=== PATIENT | female | born 1940 | race Hispanic/Latino ===

== ENCOUNTER 2017-02-11 12:04 | Emergency (ER) | payer MEDICARE ==
[2017-02-11 12:25] VITALS: O2SAT 96
[2017-02-11] MEDS ORDERED: Sodium Chloride 0.9% 1,000 ML IV ONE ×2 (12:42→12:50)
[2017-02-11] MEDS ORDERED: Albuterol 0.083% Inhal Sol (2.5 mg/3 mL) UD INH STA (12:51)
[2017-02-11] MEDS ORDERED: Albuterol 0.083% Inhal Sol (2.5 mg/3 mL) UD IH STA (12:52)
--- NOTE | 2017-02-11 12:54 | C.PDOC ---
History Of Present Illness 76 yr old female presents to the ER for evaluation of nasal congestion, runny nose and productive cough gradually developing for the past 3 weeks. Patient reports the symptoms started "after I returned from a cruise". Patient states the cough has been worsening over past few days, (+) yellow sputum. Patient admits, was seen by PMD 1 week ago " was told its viral infection and dont need anything". Otherwise, patient denies high fever, chills, headache, dizziness, vertigo, neck pain, drooling, dysphagia, dyspnea, CP, palpitations, SOB, diaphoresis, nausea, vomiting, abdominal pain, diarrhea, denies any other active complaints. Ambulate to ED for evaluation, not in any apparent distress. Time Seen by Provider: 02/11/17 12:38 Chief Complaint (Nursing): Cough, Cold, Congestion History Per: Patient History/Exam Limitations: no limitations Onset/Duration Of Symptoms: Gradual (Past 3 weeks) Past Medical History Reviewed: Historical Data, Nursing Documentation, Vital Signs Vital Signs: Last Vital Signs Temp 98 F 02/11/17 12:20 Pulse 101 H 02/11/17 12:20 Resp 18 02/11/17 12:20 BP 139/71 02/11/17 12:20 Pulse Ox 96 02/11/17 14:37 - Medical History PMH: Hyperlipidemia Surgical History: Cholecystectomy, Tonsillectomy Family History: States: No Known Family Hx - Social History Hx Alcohol Use: No Hx Substance Use: No - Immunization History Hx Tetanus Toxoid Vaccination: No Hx Influenza Vaccination: No Hx Pneumococcal Vaccination: No Review Of Systems Except As Marked, All Systems Reviewed And Found Negative. Constitutional: Negative for: Fever, Chills ENT: Positive for: Nose Discharge (Runny nose), Nose Congestion Cardiovascular: Positive for: Other ((+) Chest tightness). Negative for: Palpitations Respiratory: Positive for: Cough (Productive). Negative for: Shortness of Breath Gastrointestinal: Negative for: Nausea, Vomiting, Abdominal Pain, Diarrhea, Constipation Neurological: Negative for: Weakness, Numbness, Headache Physical Exam - Physical Exam Appears: Well, Non-toxic, No Acute Distress Skin: Warm, Dry, No Rash Eye(s): bilateral: PERRL Nose: Discharge (B/L nasal congestion with clear rhinorhea), Other (mild tenderness B?L maxillary sinus. No edema, no erythema B/L.) Oral Mucosa: Moist, No Drooling Tongue: Normal Appearing Lips: Normal Appearing Throat: No Erythema, No Exudate, No Drooling Neck: Trachea Midline, Supple Cardiovascular: Rhythm Regular, No Murmur, No JVD Respiratory: No Decreased Breath Sounds, No Accessory Muscle Use, No Rhonchi, Wheezing (Bibasilar wheezing) Gastrointestinal/Abdominal: Soft, No Tenderness, No Distention, No Guarding, No Rebound Back: No CVA Tenderness Extremity: Normal ROM, No Pedal Edema, No Swelling Neurological/Psych: Oriented x3, Normal Speech ED Course And Treatment - Laboratory Results Result Diagrams: 02/11/17 13:16 02/11/17 13:16 ECG: Interpreted By Me, Viewed By Me (and ED attending) Interpretation Of ECG: Sinus rhythm@91/min, PAC, LAD, no acute T wave or ST-T changes. NO prior study noted. O2 Sat by Pulse Oximetry: 96 (RA) Pulse Ox Interpretation: Normal - Radiology CXR: Interpreted by Me, Viewed By Me CXR Interpretation: Yes: No Acute Disease - Other Rad CXR X-Ray: Read By Radiologist Interpretation: Creator : Kelli Flores MD. Dictator : Kelli Flores MD. Sloop Captain : Civil Service Worker : Kelli Flores MD. Approver2 : Report Date : 02/11/2017 13:57:36. My Comment : . HISTORY: SOB. COMPARISON: None available. TECHNIQUE: Chest PA and lateral. FINDINGS: LUNGS: Biapical pleural thickening. No focal consolidation. Please note that chest x-ray has limited sensitivity for the detection of pulmonary masses. PLEURA: No significant pleural effusion identified. No definite pneumothorax . CARDIOVASCULAR: Heart size appears within normal limits. Atherosclerotic calcifications of the aorta. OSSEOUS STRUCTURES: Osseous demineralization. Degenerative changes. VISUALIZED UPPER ABDOMEN: Unremarkable. OTHER FINDINGS : None. IMPRESSION: No acute findings identified. See above. Progress Note: Pt was OBS In ED for 2 hours and repots moderate improvement in sx. Afebrile, hemodynamicaly stable. non-toxic. AMbulatoyr in ED with stable gait. PulsEOx 96% RA. ENT: exam c/w mild frontal sinusitis. Uvula midline, no edmea. Neck: Supple, (-) JVD, (-) carotid bruits B/L. Lungs: CTA B/L, BS equal B/L. CVS: (+)S1S2, reg. ABd: Benign, (-) guarding, (-) rebound. Back: ( -) CVA tenderness. Blodo work review- mild leukocytosis w/left shift. CMP- normal study. UA (+) WBC, RBC. cXR- no acute findings. Pt has clinical findings c/w bronchitis/sinusitis, UTI. Cse dsicussed with ED attending and discharge with outpt f/u recommend. Results review and discussed with pt. Pt feels comfortable for discharges, agrees with plan to F/U with PMD in 1-2 days. Pt advised, return to ED at any time if any worsening or new changes. Pt understand, stable for discharge now. Medical Decision Making Medical Decision Making: PLAN: * CXR * EKG * CBC * CMP * Albuterol INH * Solumedrol IVP * Sodium Chloride IV Disposition Counseled Patient/Family Regarding: Studies Performed, Diagnosis, Need For Followup, Rx Given - Disposition Referrals: Fred Polk MD [Staff Provider] - Disposition: HOME/ ROUTINE Disposition Time: 14:37 Condition: STABLE Additional Instructions: ENCOURAGE FLUIDS TAKE MEDICATION PRESCRIBED FOLLOW UP WITH PMD IN 2 DAYS FOR RE-EVALUATION. RETURN TO ED IF ANY WORSENING OR NEW CHANGES. Prescriptions: Albuterol HFA [Ventolin HFA 90 mcg/actuation (8 g)] 1 puff IH Q6 #1 inhaler Benzonatate [Tessalon Perle] 100 mg PO TID #14 capsule Cefdinir [Omnicef] 300 mg PO BID #14 cap Prednisone [Deltasone] 40 mg PO DAILY #6 tablet Instructions: Acute Bronchitis (ED), Urinary Tract Infection in Women (ED), Sinusitis (ED) Forms: [employer] (Swazi) - Clinical Impression Clinical Impression: Bronchitis, UTI (urinary tract infection), Sinusitis - PA / ENTERPRISE SYSTEMS ENGINEER / Resident Statement MD/DO has reviewed & agrees with the documentation as recorded. - Scribe Statement The provider has reviewed the documentation as recorded by the Scribe Carol Chavez All medical record entries made by the [place] were at my direction and personally dictated by me. I have reviewed the chart and agree that the record accurately reflects my personal performance of the history, physical exam, medical decision making, and the department course for this patient. I have also personally directed, reviewed, and agree with the discharge instructions and disposition.
[2017-02-11] MEDS ORDERED: Sodium Chloride 0.9% 1,000 ML ONE (12:55)
[2017-02-11] MEDS ORDERED: Albuterol 0.083% Inhal Sol (2.5 mg/3 mL) UD ONE (13:24)
[2017-02-11 13:29] LABS: BASO # 0.1 K/uL (0.0-0.2); BASO % 0.7 % (0.0-2.0); EOS # 0.2 K/uL (0.0-0.7); EOS % 1.2 % (0.0-4.0); HEMATOCRIT 38.6 % (34.0-47.0); LYMPH # 1.7 K/uL (1.0-4.3); LYMPH % 11.9 % (20.0-40.0); MEAN CELL VOLUME 86.7 fL (81.0-99.0); MEAN CORPUSCULAR HEMOGLOBIN 29.2 pg (27.0-31.0); MEAN CORPUSCULAR HGB CONC 33.7 g/dL (33.0-37.0); MEAN PLATELET VOLUME 9.6 fL (7.2-11.7); MONO # 1.4 K/uL (0.0-0.8); MONO % 9.7 % (0.0-10.0); RBC URINE 1 /hpf (0-3); RED CELL DISTRIBUTION WIDTH 13.6 % (11.5-14.5); URINE BACTERIA RARE (<OCC); URINE BILIRUBIN NEGATIVE (NEGATIVE); URINE BLOOD 1+ (NEGATIVE); URINE COLOR Amber (YELLOW); URINE GLUCOSE (UA) NORMAL (Normal); URINE KETONE NEGATIVE (NEGATIVE); URINE LEUKOCYTE ESTERASE 3+ Leu/uL (Negative); URINE PROTEIN 2+ mg/dL (NEGATIVE); WBC URINE 23 /hpf (0-5); WHITE BLOOD COUNT 13.9 K/uL (4.8-10.8)
[2017-02-11 13:30] LABS: INR 1.2
[2017-02-11 13:39] LABS: ALKALINE PHOSPHATASE 106 U/L (38-126); ALT/SGPT 32 U/L (9-52); AST/SGOT 28 U/L (14-36); BILIRUBIN,TOTAL 1.2 mg/dL (0.2-1.3); BLOOD UREA NITROGEN 17 mg/dL (7-17); CALCIUM 9.5 mg/dl (8.6-10.4); CARBON DIOXIDE 23 mmol/L (22-30); CHLORIDE 102 mmol/L (98-107); GFR AFRICAN-AMERICAN > 60; GLUCOSE,RANDOM 153 mg/dL (65-105); POTASSIUM 4.3 mmol/L (3.6-5.2); SODIUM 138 mmol/L (132-148); TOTAL PROTEIN 9.2 g/dL (6.3-8.3)
--- NOTE | 2017-02-11 13:58 | RAD ---
HISTORY: SOB COMPARISON: None available. TECHNIQUE: Chest PA and lateral FINDINGS: LUNGS: Biapical pleural thickening. No focal consolidation. Please note that chest x-ray has limited sensitivity for the detection of pulmonary masses. PLEURA: No significant pleural effusion identified. No definite pneumothorax . CARDIOVASCULAR: Heart size appears within normal limits. Atherosclerotic calcifications of the aorta. OSSEOUS STRUCTURES: Osseous demineralization. Degenerative changes. VISUALIZED UPPER ABDOMEN: Unremarkable. OTHER FINDINGS: None. IMPRESSION: No acute findings identified. See above.
[2017-02-11 16:23] VITALS: BP 152/73; PULSE 85; RESP 17; TEMP 98.1
--- NOTE | 2017-02-12 21:53 | CARD ---
APPROVED REPORT EKG Measurement Heart [id number] <Conclusion> Sinus rhythm with premature atrial complexes Otherwise normal ECG
== END 2017-02-11 16:23 | disposition home or self-care (01) ==
LOC: C.ER 12:04
DX: N39.0 Urinary tract infection, site not specified (principal); J40 Bronchitis, not specified as acute or chronic; J32.9 Chronic sinusitis, unspecified; E78.5 Hyperlipidemia, unspecified
CPT/HCPCS: 71020; 80053; 81001; 85025; 85610; 85730; 87040; 87086; 93005; 94640; 96361; 96374; 96375; 99285; J0696; J2930; J7040